=== PATIENT | female | born 1950 | race Caucasian/White ===

== ENCOUNTER 2017-11-01 11:39 | Emergency (ER) | payer MEDICARE ==
[~2017-11-01] VITALS: Ht 167.6 cm; Wt 77.1 kg
[~2017-11-01 11:39] MED LIST: ASPI81CT89 PO; SIMV10TA1 PO
[2017-11-01 11:44] VITALS: BP 119/61
[2017-11-01] MEDS ORDERED: NACL 0.9% 1,000 ML IV ONE (11:55)
[2017-11-01 12:48] LABS: CARBON DIOXIDE 21.7 mmol/L (21-32); POTASSIUM 3.7 mmol/L (3.5-5.1)
[2017-11-01 12:53] LABS: ALBUMIN 3.3 g/dL (3.4-5.0); TOTAL BILIRUBIN 0.6 mg/dL (0.0-1.0)
[2017-11-01 12:56] LABS: PROTHROMBIN TIME 11.7 secs (10.8-13.4)
[2017-11-01 13:04] LABS: RED BLOOD CELL COUNT(AUTO) 4.39 MIL/uL (4.20-5.40)
[2017-11-01 13:05] LABS: BASOPHILS % (AUTO) 2.3 % (0.0-2.0); EOSINOPHILS % (AUTO) 0.2 % (0.0-4.0); HEMATOCRIT 39.4 % (36-48); HEMOGLOBIN 12.7 g/dL (12.0-16.0); LYMPHOCYTES % (AUTO) 14.2 % (20.5-51.1); MEAN CORPUSCULAR HEMOGLOBIN 29 pg (27-31); MEAN CORPUSCULAR HGB CONC 32 g/dL (33-37); MEAN CORPUSCULAR VOLUME 89.7 fL (80-94); NEUTROPHILS % (AUTO) 79.3 % (42.2-75.2); PLATELET COUNT (AUTO) 218 K/uL (140-450); RED CELL DISTRIBUTION WIDTH 11.7 % (11.6-13.7)
[2017-11-01] MEDS ORDERED: MAG SULF 2000 MG/WATER PREMIX 50 ML IV ONE (14:25)
[2017-11-01] MEDS ORDERED: ceFAZolin 1,000 MG VIAL ONE (14:39)
[2017-11-01 17:34] VITALS: BP 120/75
== END 2017-11-01 17:34 | disposition home or self-care (01) ==
LOC: MED 11:39
DX: T50.905A Adverse effect of unspecified drugs, medicaments and biological substances, initial encounter (principal); B35.3 Tinea pedis; E86.0 Dehydration; L03.032 Cellulitis of left toe; Z79.82 Long term (current) use of aspirin; Z79.899 Other long term (current) drug therapy; Y92.89 Other specified places as the place of occurrence of the external cause
CPT/HCPCS: 36415; 71045; 73660; 80053; 81025; 83735; 83880; 84484; 85025; 85610; 85730; 93005; 96361; 96365; 96366; 96367; 99285; J0690; J3475; J7030; Q0092; 96368